=== PATIENT | female | born 1965 | race Caucasian/White ===

== ENCOUNTER 2020-02-22 08:27 | Outpatient (CLI) | payer OTHER ==
--- NOTE | 2020-02-22 12:21 | CT ---
CHEST CT SCAN WITHOUT IV CONTRAST: HISTORY: Right-sided chest pain radiating to back for several months. History of a fatty adipose mass in back of right shoulder region. FINDINGS: A 0.4 cm nodule in the lingula. No mediastinal mass or adenopathy. No pleural effusion or pericardi al effusion. There is evidence for a 4.8 x 6.8 x 9.1 cm diameter fatty density mass noted deep to th e right trapezius muscle probably between the trapezius muscle and the rhomboid muscles, evidence for a [id number] fatty mass such as a lipoma. If this mass increases in size or changes in character, followup MRI with and without IV contrast cou ld be considered. There is a small hiatal hernia. A small right renal low-density focus, possibly a small cyst. IMPRESSION: 1. A 0.4 cm circumscribed nodule in the lingula. Dependent on risk factors, consider followup annua l chest CT. 2. Posterior right chest wall fatty mass. Small hiatal hernia. Probable small right renal cyst, al though it is too small to characterize. Small hiatal hernia. POS: AH
== END 2020-02-22 08:28 | disposition home or self-care (01) ==
LOC: SCSCT 08:27
PROVIDERS: ATTEND Nurse Practitioner Family
DX: R07.89 Other chest pain (principal); R05 Cough; R03.0 Elevated blood-pressure reading, without diagnosis of hypertension; R91.1 Solitary pulmonary nodule; K44.9 Diaphragmatic hernia without obstruction or gangrene
CPT/HCPCS: 71260